=== PATIENT | female | born 1960 | race Caucasian/White ===

== ENCOUNTER 2021-06-17 13:55 | Emergency (ER) | payer OTHER ==
[~2021-06-17] VITALS: Ht 180.3 cm; Wt 81.6 kg
[2021-06-17 13:55] VITALS: BP_SYST 122
--- NOTE | 2021-06-17 14:00 | NUR ---
Patient to ER bed 4 to gown for evaluation. Side rails up. Report given to
--- NOTE | 2021-06-17 14:15 | NUR ---
ER at bedside examining patient.
--- NOTE | 2021-06-17 14:20 | NUR ---
Pt. c/o pain and swelling in left foot for 4 to 5 days, went to urgent care for xray and sent here doppler study denies need for pain med
[2021-06-17] MEDS ORDERED: NAPR-1172 PO (15:52)
--- NOTE | 2021-06-17 16:00 | NUR ---
Patient given written and verbal discharge instructions and verbalizes understanding. ER Dr. Clemons discussed with patient the results and treatment provided. Patient in stable condition. ID arm band removed. Rx of Napoxen given. Patient educated on pain management and to follow up with PMD. Pain Scale 2. Opportunity for questions provided and answered. Medication side effect fact sheet provided.
[2021-06-17 16:17] VITALS: BP_SYST 128
== END 2021-06-17 16:00 | disposition home or self-care (01) ==
LOC: SED 13:55
DX: M25.472 Effusion, left ankle (principal); Z79.899 Other long term (current) drug therapy
CPT/HCPCS: 93971; 99284